=== PATIENT | female | born 1965 | race Caucasian/White ===

== ENCOUNTER → 2019-02-20 | Outpatient (CLI) | payer BC ==
--- NOTE | 2019-02-22 08:13 | MM ---
Reason for exam: screening (asymptomatic). Last mammogram was performed 3 years and 9 months ago. History: Patient is postmenopausal. Family history of breast cancer in paternal aunt at age 60. Physical Findings: A clinical breast exam by your physician is recommended on an annual basis and results should be correlated with mammographic findings. MG 3D Screening Mammo W/Cad Bilateral CC and MLO view(s) were taken. Prior study comparison: May 13, 2015, mammogram, performed at [facility]. May 03, 2015, mammogram, performed at [facility]. There are scattered fibroglandular densities. Finding: There are stable, fine, segmental calcifications in the upper inner quadrant, middle position of the right breast. No significant changes in finding since May 13, 2015 and May 03, 2015. ASSESSMENT: Benign, BI-RAD 2 RECOMMENDATION: Routine screening mammogram of both breasts in 1 year.
== END ==
LOC: RADMAMWWP 14:36
PROVIDERS: ATTEND Family Medicine
DX: Z12.31 Encounter for screening mammogram for malignant neoplasm of breast (principal)
CPT/HCPCS: 77063; 77067

== ENCOUNTER → 2020-09-09 | Outpatient (CLI) | payer BC ==
--- NOTE | 2020-09-11 09:19 | MM ---
Reason for exam: screening (asymptomatic). Last mammogram was performed 1 year and 7 months ago. History: Patient is postmenopausal. Family history of breast cancer in paternal aunt at age 60. Physical Findings: A clinical breast exam by your physician is recommended on an annual basis and results should be correlated with mammographic findings. MG 3D Screening Mammo W/Cad Bilateral CC and MLO view(s) were taken. Prior study comparison: February 20, 2019, bilateral MG 3d screening mammo w/cad. May 13, 2015, mammogram, performed at [facility]. There are scattered fibroglandular densities. New 1.6 x 0.9 x 0.8cm spiculated mass left upper outer quadrant. This is extremely suspicious. ASSESSMENT: Incomplete: need additional imaging evaluation, BI-RAD 0 RECOMMENDATION: Special view mammogram of the left breast. (3D) Ultrasound of the left breast. [facility] will attempt to contact patient to return for supplemental views and ultrasound.
== END | disposition home or self-care (01) ==
LOC: RADMAMWWP 11:02
PROVIDERS: ATTEND Family Medicine
DX: Z12.31 Encounter for screening mammogram for malignant neoplasm of breast (principal)
CPT/HCPCS: 77063; 77067

== ENCOUNTER → 2020-09-30 | Outpatient (CLI) | payer BC ==
--- NOTE | 2020-10-01 08:28 | MM ---
Reason for exam: additional evaluation requested from abnormal screening. Last mammogram was performed 1 month ago. History: Patient is postmenopausal. Family history of breast cancer in paternal aunt at age 60. Physical Findings: Nurse did not find any significant physical abnormalities on exam. MG 3D Work Up W/Cad LT CC and MLO view(s) were taken of the left breast. Prior study comparison: September 09, 2020, bilateral MG 3d screening mammo w/cad. February 20, 2019, bilateral MG 3d screening mammo w/cad. Finding: There is an intermediate concern, suspicious 10 mm high density, spiculated round mass located 7 cm from the nipple in the upper outer quadrant of the left breast. New finding since February 20, 2019. These results were verbally communicated with the patient and result sheet given to the patient on 09/30/20. ASSESSMENT: Incomplete: need additional imaging evaluation, BI-RAD 0 RECOMMENDATION: Ultrasound of the left breast.
--- NOTE | 2020-10-01 08:30 | USB ---
Reason for exam: additional evaluation requested from abnormal screening. History: Patient is postmenopausal. Family history of breast cancer in paternal aunt at age 60. US Breast Workup LT Left complete breast ultrasound includes all four quadrants, the retroareolar region and axilla. Finding demonstrates a 11 x 7 x 8mm irregular, spiculated, solid, hypoechoic, shadowing lesion at 2 o'clock, biopsy recommended and a chain of lymph nodes at the axilla tail with the largest measuring 10mm. These results were verbally communicated with the patient and result sheet given to the patient on 09/30/20. ASSESSMENT: Highly suggestive of malignancy, BI-RAD 5 RECOMMENDATION: Ultrasound core biopsy of the left breast. Called office with mammographic findings and has scheduled an appointment for the patient for 10/14/20 at 12:[address] Huddleston. Biopsy scheduled for 10/08/20 at 1:00. PRELIMINARY REPORT CALLED AND FAXED TO DR. HUDDLESTON ON 10/01/20.
== END | disposition home or self-care (01) ==
LOC: RADMAMWWP 13:26
PROVIDERS: ATTEND Family Medicine
DX: R92.8 Other abnormal and inconclusive findings on diagnostic imaging of breast (principal)
CPT/HCPCS: 77061; 77065

== ENCOUNTER → 2020-10-08 | Day surgery (SDC) | payer BC ==
[2020-10-08 13:29] VITALS: BP 153/89; PULSE 76; RESP 16; TEMP 98.3
--- NOTE | 2020-10-08 13:38 | USB ---
ULTRASOUND GUIDED CORE BIOPSY LEFT BREAST: CLINICAL HISTORY: 2:00 left breast lesion FINDINGS: The procedure was explained to the patient. The risks, complications, benefits and alternatives were discussed and any questions were answered. Informed consent was obtained. Patient was placed supine on the ultrasound table and prepped and draped in the usual sterile fashion. Utilizing a 14 gauge needle, four passes were made into the requested left lung nodule. Surgical clip was placed post procedure. Postprocedural mammogram demonstrated the clip to be in ideal position. Patient was stable throughout the procedure. Pathology is pending. All elements of maximal barrier technique were utilized. IMPRESSION: 1. Successful ultrasound guided core biopsy left breast. Pathology Results: Malignant LEFT BREAST, 2:00, ULTRASOUND GUIDED CORE BIOPSY: Invasive well differentiated ductal cell carcinoma (Grade 1). See Surgical Pathology Cancer Case Summary. Recommendation Surgical consult of the left breast. ANITRA
--- NOTE | 2020-10-08 13:47 | MM ---
Reason for exam: additional evaluation requested from abnormal screening. Last mammogram was performed less than 1 month ago. History: Patient is postmenopausal. Family history of breast cancer in paternal aunt at age 60. MG Diagnostic Mammo LT Wo CAD CC and LM view(s) were taken of the left breast. Prior study comparison: September 30, 2020, left breast MG 3d work up w/cad LT. September 09, 2020, bilateral MG 3d screening mammo w/cad. ASSESSMENT: Post procedure mammogram for marker placement RECOMMENDATION: Ultrasound of the left breast in 6 months. PENDING PATHOLOGY RESULTS.
== END ==
LOC: RADUSWWP 11:55
PROVIDERS: ATTEND Family Medicine
DX: C50.412 Malignant neoplasm of upper-outer quadrant of left female breast (principal); Z17.0 Estrogen receptor positive status [ER+]; Z78.0 Asymptomatic menopausal state; Z80.3 Family history of malignant neoplasm of breast
CPT/HCPCS: 88305; 88342; 88341; 77065; 19083; A4648; J2001

== ENCOUNTER 2021-05-16 07:36 | Day surgery (SDC) | payer BC ==
[2021-05-14 14:48] VITALS: BMI 33.2
[~2021-05-16 07:36] MED LIST: LACTATED RINGERS 1,000 ML IV SCH
[2021-05-16 07:54] VITALS: TEMP 97.8
[2021-05-16] MEDS ORDERED: PROPOFOL 10 MG/ML 20 ML VIAL IV ONE (08:20)
[2021-05-16 08:43] VITALS: RESP 18
[2021-05-16 08:57] VITALS: BP 106/71; PULSE 66
--- NOTE | 2021-05-16 08:57 | P.PCN ---
Date of Procedure: 05/16/21 Procedure(s) Performed: BRIEF HISTORY: Patient is a 55-year-old pleasant white female scheduled for an elective colonoscopy as a part of evaluation of prior history of colon polyps. PROCEDURE PERFORMED: Colonoscopy with biopsy. PREOPERATIVE DIAGNOSIS: History of colon polyps. IV sedation per Anesthesia. PROCEDURE: After informed consent was obtained, the patient, was brought into the endoscopy unit. IV sedation was administered by Anesthesia under continuous monitoring. Digital rectal examination was normal. Initially the Olympus CF-160 flexible video colonoscope was then inserted in the rectum, gradually advanced into the cecum without any difficulty. Careful examination was performed as the scope was gradually being withdrawn. Ileocecal valve and the appendiceal orifice were visualized and appeared normal. Prep was excellent. Mucosa of the cecum, ascending colon, transverse colon, descending colon, appeared normal. The sigmoid: There was a 3 mm polyp that was removed by cold biopsy. Rectum there was a 3 mm and 4 mm sessile polyp removed by cold biopsy. Retroflexion was performed in the rectum and no lesions were seen. The patient tolerated the procedure well. IMPRESSION: 3 mm sigmoid colon polyp status post removal by cold biopsy 3 mm and 4 mm proximal rectal polyp status post cold biopsy RECOMMENDATIONS: Findings of this examination were discussed with the patient as well as a family. She was advised to follow with the biopsy results. If the biopsy shows an adenoma she can have a repeat colonoscopy in 5 years.
== END 2021-05-16 09:30 | disposition home or self-care (01) ==
LOC: ORWHC2ENDO 07:36
PROVIDERS: ATTEND Internal Medicine Gastroenterology
DX: Z12.11 Encounter for screening for malignant neoplasm of colon (principal); K62.1 Rectal polyp; Z86.010 Personal history of colon polyps; F17.200 Nicotine dependence, unspecified, uncomplicated; Z79.899 Other long term (current) drug therapy; Z79.811 Long term (current) use of aromatase inhibitors; Z88.0 Allergy status to penicillin
CPT/HCPCS: 88305; 45380; J2704

== ENCOUNTER → 2021-06-10 | Outpatient (CLI) | payer BC ==
--- NOTE | 2021-06-10 19:04 | BD ---
EXAMINATION TYPE: Axial Bone Density DATE OF EXAM: 06/10/2021 COMPARISON: NONE CLINICAL HISTORY: Postmenopausal screening Height: 59.7 IN Weight: 174 LBS FRAX RISK QUESTIONS: Current Tobacco Use: YES RISK FACTORS HISTORY OF: Active: YES Postmenopausal woman: AGE 48 MEDICATIONS: Additional Medications: VIT D, ANASTRAZOLE, VIT E, B12, MULTI VIT Additional History: BREAST CANCER WITH RADIATION EXAM MEASUREMENTS: Bone mineral densitometry was performed using the [employer]. Bone mineral density as measured about the Lumbar spine is: ----- L1-L4(G/cm2): 1.091 T Score Values are as follows: ----- L2: -1.4 ----- L3: -0.9 ----- L4: 0.5 ----- L1-L4: -0.7 Bone mineral density BASELINE Bone mineral density about the R hip (g/cm2): 1.005 Bone mineral density about the L hip (g/cm2): 0.993 T Score values are as follows: -----R Neck: -0.2 -----L Neck: -0.3 -----R Total: 0.1 -----L Total: 0.4 Bone mineral density BASELINE IMPRESSION: Normal (Values between +1 and -1 indicate normal bone mass). Consider repeating this study in 5 year s or sooner if there is some new clinical indication. NOTE: T-SCORE=SD OF THE YOUNG ADULT MEAN.
== END | disposition home or self-care (01) ==
LOC: RADBDWWP 15:07
PROVIDERS: ATTEND Internal Medicine Hematology & Oncology
DX: Z13.820 Encounter for screening for osteoporosis (principal)
CPT/HCPCS: 77080

== ENCOUNTER 2021-06-30 20:50 | Emergency (ER) | payer BC ==
[2021-06-30 21:17] VITALS: BP 124/82; PULSE 78; RESP 18; TEMP 98
--- NOTE | 2021-06-30 21:35 | XR ---
EXAMINATION TYPE: XR shoulder complete RT DATE OF EXAM: 06/30/2021 COMPARISON: NONE HISTORY: Fall. Pain TECHNIQUE: 3 views FINDINGS: There is nondisplaced transverse fracture of the right humeral neck. There is no dislocatio n. Scapula is intact. AC joint is intact. IMPRESSION: Acute nondisplaced humeral neck fracture.
[2021-06-30] MEDS ORDERED: MORPHINE SULFATE 4 MG/ML SYRINGE IM STA (22:27)
[2021-06-30] MEDS ORDERED: ONDANSETRON ODT 4 MG TAB PO STA (22:27)
[2021-06-30] MEDS ORDERED: ACET/COD 300 MG/30 MG STARTER PACK 6 TAB BTL PO STA (23:01)
--- NOTE | 2021-06-30 23:02 | ED ---
General Adult HPI - General Chief complaint: Extremity Injury, Upper Stated complaint: fall R shoulder injury Time Seen by Provider: 06/30/21 21:55 Source: patient Mode of arrival: ambulatory Limitations: no limitations - History of Present Illness Initial comments: 55-year-old female presents to the emergency room for right shoulder pain. Patient was walking on her porch when she lost her footing and fell onto his lab of cement. Patient did not hit her head. However she does have right shoulder pain. States it is very painful to move her shoulder. Denies any pain elsewhere. Does not take blood thinners.Patient has no other complaints at this time including shortness of breath, chest pain, abdominal pain, nausea or vomiting, headache, or visual changes. - Related Data Home Medications Medication Instructions Recorded Confirmed Anastrozole [Arimidex] 1 mg PO DAILY 05/14/21 05/16/21 Melatonin 5 mg PO HS PRN 05/14/21 05/14/21 Multivitamin [Multivitamins Adult 1 each PO DAILY 05/14/21 05/14/21 Gummies] Varenicline [Chantix Continuing 1 mg PO BID 05/14/21 05/16/21 Pack] Vit D3 2,000 mcg PO DAILY 05/14/21 05/16/21 Vit E. 180 mg PO DAILY 05/14/21 05/16/21 diphenhydrAMINE [Benadryl] 50 mg PO HS PRN 05/14/21 05/16/21 Previous Rx's Medication Instructions Recorded HYDROcodone/APAP 5-325MG [Orr 1 tab PO Q6HR PRN #10 tab 06/30/21 5-325] Ondansetron [Zofran ODT] 4 mg PO Q8HR PRN #15 tab 06/30/21 Allergies Allergy/AdvReac Type Severity Reaction Status Date / Time Penicillins Allergy Rash/Hives Verified 06/30/21 21:15 Review of Systems ROS Statement: Those systems with pertinent positive or pertinent negative responses have been documented in the HPI. ROS Other: All systems not noted in ROS Statement are negative. Past Medical History Past Medical History: Cancer Additional Past Medical History / Comment(s): BREAST CANCER LT BREAST History of Any Multi-Drug Resistant Organisms: None Reported Past Surgical History: Cholecystectomy Additional Past Surgical History / Comment(s): COLONOSCOPY, CANCER REMOVED LT BREAST-LUMPECTOMY Past Anesthesia/Blood Transfusion Reactions: No Reported Reaction Past Psychological History: No Psychological Hx Reported Smoking Status: Current every day smoker Past Alcohol Use History: None Reported Past Drug Use History: None Reported - Past Family History Mother Family Medical History: No Reported History General Exam Limitations: no limitations General appearance: alert, in no apparent distress Head exam: Present: atraumatic, normocephalic, normal inspection Eye exam: Present: normal appearance, PERRL, EOMI. Absent: scleral icterus, conjunctival injection, periorbital swelling ENT exam: Present: normal exam, mucous membranes moist Neck exam: Present: normal inspection, full ROM. Absent: tenderness, meningismus, lymphadenopathy Respiratory exam: Present: normal lung sounds bilaterally. Absent: respiratory distress, wheezes, rales, rhonchi, stridor Cardiovascular Exam: Present: regular rate, normal rhythm, normal heart sounds. Absent: systolic murmur, diastolic murmur, rubs, gallop, clicks Extremities exam: Present: normal capillary refill (Capillary refill less than 2 seconds, radial pulse 2+ in the right upper extremity.), other (Skin is intact.). Absent: full ROM (Patient has minimal range of motion of the right shoulder secondary to pain. Able to flex and extend all fingers of the right hand and flex and extend the wrist.) Course Vital Signs 06/30/21 21:15 Temperature 98 F Pulse Rate 78 Respiratory 18 Rate Blood Pressure 124/82 O2 Sat by Pulse 96 Oximetry Medical Decision Making - Medical Decision Making X-ray shows an acute nondisplaced humeral neck fracture. Patient was placed in a sling. She was given IM morphine. This was delayed secondary to waiting room. Patient will need to follow-up with orthopedics. She'll be discharged with pain medication. She will return here for any worsening symptoms. Disposition Clinical Impression: Fracture of neck of humerus Disposition: HOME SELF-CARE Condition: Good Instructions (If sedation given, give patient instructions): Shoulder Pain (ED) Additional Instructions: Please take Motrin for pain. If pain is severe take Orr. Do not drive or operate machinery while taking this. Follow up with orthopedics by calling the office tomorrow morning. Return for any worsening symptoms. Prescriptions: HYDROcodone/APAP 5-325MG [Orr 5-325] 1 tab PO Q6HR PRN #10 tab PRN Reason: Pain Ondansetron [Zofran ODT] 4 mg PO Q8HR PRN #15 tab PRN Reason: Nausea Is patient prescribed a controlled substance at d/c from ED?: Yes When asked, does pt state using other controlled substances?: No If prescribed controlled substance>3 days was MAPS reviewed?: Prescribed <3 Days If opioid is for acute pain is fill amount 7 days or less?: Yes If Rx opioid, was Start Talking consent form obtained?: Yes Referrals: Wesley Huddleston MD [Primary Care Provider] - 1-2 days Randy So DO [Doctor of Osteopathic Medicine] - 1-2 days Time of Disposition: 23:00
== END 2021-06-30 23:10 | disposition home or self-care (01) ==
LOC: EC 20:50
DX: S42.211A Unspecified displaced fracture of surgical neck of right humerus, initial encounter for closed fracture (principal); F17.200 Nicotine dependence, unspecified, uncomplicated; Z88.0 Allergy status to penicillin; Z90.49 Acquired absence of other specified parts of digestive tract; Z85.3 Personal history of malignant neoplasm of breast; W01.10XA Fall on same level from slipping, tripping and stumbling with subsequent striking against unspecified object, initial encounter
CPT/HCPCS: 99283; 96372; 73030; J2270

== ENCOUNTER → 2021-09-03 | Outpatient (CLI) | payer BC ==
--- NOTE | 2021-09-03 11:49 | MM ---
Reason for exam: additional evaluation requested from prior study. Last mammogram was performed 11 months ago. History: Patient is postmenopausal and has history of breast cancer at age 54. Family history of breast cancer in paternal aunt at age 60. Malignant US breast needle core LT of the left breast, October 08, 2020. Taking antineoplastic for 1 year beginning at age 54. Physical Findings: Nurse did not find any significant physical abnormalities on exam. MG 3D Diag Mammo W/Cad [facility] Bilateral CC and MLO view(s) were taken. Prior study comparison: October 08, 2020, left breast MG diagnostic mammo LT wo CAD. September 09, 2020, bilateral MG 3d screening mammo w/cad. February 20, 2019, bilateral MG 3d screening mammo w/cad. There are scattered fibroglandular densities. Diffuse skin thickening left breast. Post surgical changes left breast. No significant new findings when compared with previous films. These results were verbally communicated with the patient and result sheet given to the patient on 09/03/21. ASSESSMENT: Benign, BI-RAD 2 RECOMMENDATION: Follow-up diagnostic mammogram of both breasts in 1 year.
== END | disposition home or self-care (01) ==
LOC: RADMAMWWP 10:36
PROVIDERS: ATTEND Radiology Radiation Oncology
DX: R92.2 Inconclusive mammogram (principal); Z85.3 Personal history of malignant neoplasm of breast; Z80.3 Family history of malignant neoplasm of breast
CPT/HCPCS: 77062; 77066

== ENCOUNTER → 2021-09-26 | Outpatient (CLI) | payer BC ==
[2021-09-26 17:10] LABS: Basophils # (A) 0.04 X 10*3/uL (0.00-0.10); Basophils % (A) 0.5 %; Eosinophils # (A) 0.31 X 10*3/uL (0.04-0.35); Eosinophils % (A) 4.3 %; HCT 41.8 % (37.2-46.3); HGB 13.7 g/dL (12.0-15.0); Lymphocytes % (A) 26.1 %; MCH 31.1 pg (27.0-32.0); MCHC 32.8 g/dL (32.0-37.0); MCV 94.8 fL (80.0-97.0); Mean Platelet Volume 12.5 fL (9.5-12.2); Monocytes # (A) 0.64 X 10*3/uL (0.20-1.00); Monocytes % (A) 8.8 %; Neutrophils # (A) 4.37 X 10*3/uL (1.80-7.70); Platelet Count 177 X 10*3/uL (140-440); RBC 4.41 X 10*6/uL (4.10-5.20); WBC 7.28 X 10*3/uL (4.50-10.00)
[2021-09-26 17:16] LABS: African American GFR (CKD) 125.3 (60.0-200.0); Albumin 4.4 g/dL (3.8-4.9); Anion Gap 12.9 mmol/L (4.00-12.00); BUN/Creat Ratio 19.98 Ratio (12.00-20.00); Blood Urea Nitrogen 9.8 mg/dL (9.0-27.0); Carbon Dioxide 25.1 mmol/L (21.6-31.8); Non-African American GFR(CKD) 108.1 (60.0-200.0); Potassium 4.8 mmol/L (3.5-5.5); Total Protein 6.8 g/dL (6.2-8.2)
[2021-09-26 20:06] LABS: Erythrocyte Sedimentation Rate 14 mm/Hr (0-30)
== END | disposition home or self-care (01) ==
LOC: LABWHC1 07:32
PROVIDERS: ATTEND Orthopaedic Surgery
DX: S42.201P Unspecified fracture of upper end of right humerus, subsequent encounter for fracture with malunion (principal); X58.XXXD Exposure to other specified factors, subsequent encounter
CPT/HCPCS: 36415; 80048; 82040; 82306; 84155; 85025; 85652; 86140

== ENCOUNTER → 2021-10-23 | Outpatient (CLI) | payer BC ==
--- NOTE | 2021-10-23 10:33 | CT ---
EXAMINATION TYPE: CT shoulder RT w con DATE OF EXAM: 10/23/2021 COMPARISON: X-ray 09/22/2021 HISTORY: Comminuted Right humeral fracture with delayed healing CT DLP: 358.5 mGycm Automated exposure control for dose reduction was used. CONTRAST: Performed with IV Contrast, patient injected with 100 mL of Isovue 300. FINDINGS: There is a nonunion fracture involving the neck of the humerus there does appear to be some callus fo rmation along the outer lateral margin of the fracture line. Hypertrophic change of the AC joint. Hypertrophic and degenerative change of the spine. IMPRESSION: PERSISTENT NONUNION RIGHT HUMERAL NECK FRACTURE
== END | disposition home or self-care (01) ==
LOC: RADCTMAIN 09:26
PROVIDERS: ATTEND Orthopaedic Surgery
DX: S42.211K Unspecified displaced fracture of surgical neck of right humerus, subsequent encounter for fracture with nonunion (principal)
CPT/HCPCS: 73201; Q9967

== ENCOUNTER → 2022-09-04 | Outpatient (CLI) | payer BC ==
--- NOTE | 2022-09-04 13:40 | MM ---
Reason for Exam: Additional evaluation requested from prior study. Last screening mammogram was performed 12 month(s) ago. Patient History: Menarche at age 12. First Full-Term at age 25. Postmenopausal. Breast cancer, age 54. Previous chest radiation therapy at age 54. 10/08/2020, Malignant Core Biopsy on the left side. Paternal aunt had breast cancer, age 60. Tissue Density: There are scattered fibroglandular densities. Findings: Analyzed By CAD. Postoperative lumpectomy changes left breast with persistent skin thickening. No evidence for recurrent or residual mass or suspicious cluster of microcalcifications. Overall Assessment: Benign, BI-RAD 2 Management: Screening Mammogram of both breasts in 1 year. A clinical breast exam by your physician is recommended on an annual basis and results should be correlated with mammographic findings. This exam should not preclude additional follow-up of suspicious palpable abnormalities. Results were given to the patient verbally at the time of exam. Electronically signed and approved by: Rajan Carrillo M.D. Radiologis
== END | disposition home or self-care (01) ==
LOC: RADMAMWWP 12:53
PROVIDERS: ATTEND Radiology Radiation Oncology
DX: C50.212 Malignant neoplasm of upper-inner quadrant of left female breast (principal); Z78.0 Asymptomatic menopausal state; Z80.3 Family history of malignant neoplasm of breast
CPT/HCPCS: 77062; 77066

== ENCOUNTER → 2023-03-09 | Outpatient (CLI) | payer BC ==
--- NOTE | 2023-03-09 15:34 | CTL ---
EXAMINATION TYPE: CT Low Dose Lung DATE OF EXAM ORDERED: 03/09/2023 HISTORY: 57-year-old female with personal history of nicotine dependence, 39 pack-year history, curre nt smoker. Lung cancer screening CT DLP: 106.[address] CTDI: 3.4 mGy Automated exposure control for dose reduction was used. SCREENING VISIT: Baseline COMPARISON: None TECHNIQUE: Low dose computed tomography scan was performed through the chest with coronal and sagitta l reconstructions. CT DIAGNOSTIC QUALITY: Satisfactory FINDINGS: Heart normal size without pericardial effusion. Ectatic ascending aorta 3.7 cm. Minimal atherosclerotic arch calcifications. Very direct takeoff of t he left vertebral artery directly from the aortic arch. No thoracic lymphadenopathy by CT size criteria. There appears to be some postsurgical change along the lateral left breast and diffuse left breast sk in thickening, compatible with prior posterior unchanged. Mild subpleural reticulations anterior left midlung likely related to previous post radiation therapy change. No consolidation or pleural effusion. No suspicious pulmonary nodule is seen. Tiny hiatal hernia. Visualized upper abdomen shows no gross abnormality. Bones: Anterior endplate spondylosis mid to lower thoracic spine. IMPRESSION: 1. Lung rads 1, negative. No suspicious pulmonary nodules. 2. Previous postsurgical and posttreatment changes left breast. CT LUNG RAD AND CT CHEST RECOMMENDATION: Lung-Rad 1 Negative: Continue annual screening with LDCT in 12 months. S Modifier (other clinically significant findings): None
== END | disposition home or self-care (01) ==
LOC: RADCTMAIN 12:57
PROVIDERS: ATTEND Internal Medicine Hematology & Oncology
DX: Z12.2 Encounter for screening for malignant neoplasm of respiratory organs (principal); F17.210 Nicotine dependence, cigarettes, uncomplicated
CPT/HCPCS: 71271

== ENCOUNTER → 2023-06-11 | Outpatient (CLI) | payer BC ==
--- NOTE | 2023-06-11 10:36 | BD ---
EXAMINATION TYPE: Axial Bone Density DATE OF EXAM: 06/11/2023 CLINICAL HISTORY: 57 years old Female. ICD-10 CODE: C50.412 CARCINOMA OF UPPER OUTTER QUADRANT OF BR EAST Height: 60 Weight: 166.7 FRAX RISK QUESTIONS: Alcohol (3 or more units per day): no Family History (Parent hip fracture): no Glucocorticoids (More than 3mos): no (Ex: prednisone, prednisolone, methylprednisolone, dexamethasone, and hydrocortisone). History of Fracture in Adulthood: yes Secondary Osteoporosis: 1. Type 1 Diabetes: no 2. Hyperthyroidism: no 3. Menopause before 45: no 4. Malnutrition: no 5. Chronic liver disease: no Rheumatoid Arthritis: no Current Tobacco Use: yes RISK FACTORS HISTORY OF: Surgery to Spine/Hip(right/left)/Wrist (right/left): no Family History of Osteoporosis: no Active: yes Diet low in dairy products/other sources of calcium: yes Postmenopausal woman: s Lost more than 2 inches in height since high school: no MEDICATIONS: Additional History: EXAM MEASUREMENTS: Bone mineral densitometry was performed using the [employer] System. Bone mineral density as measured about the Lumbar spine is: ----- L1-L4(G/cm2): 1.077 T Score Values are as follows: ----- L1: -1.9 ----- L2: -1.5 ----- L3: -0.9 ----- L4: 0.3 ----- L1-L4: -0.9 Z Score Values are as follows: ----- L1: -1.1 ----- L2: -0.7 ----- L3: -0.1 ----- L4: 1.1 ----- L1-L4: -0.1 Bone mineral density has: decreased -1.3 % since study of: 06.10.2021 Bone mineral density about the R hip (g/cm2): 0.988 Bone mineral density about the L hip (g/cm2): 1.057 T Score values are as follows: -----R Neck: -0.2 -----L Neck: -0.5 -----R Total: -0.1 -----L Total: 0.4 Z Score values are as follows: -----R Neck: 0.8 -----L Neck: 0.5 -----R Total: 0.6 -----L Total: 1.0 Bone mineral density has: decreased -1.1 % since study of: 8.3.2020 FRAX%s: The graph provided illustrates a 10.3% chance for a major osteoporotic fx and a 0.6% chance f or the hips probability for fx in 10 years time. IMPRESSION: Normal (Values between +1 and -1 indicate normal bone mass). Consider repeating this study in 5 year s or sooner if there is some new clinical indication. NOTE: T-SCORE=SD OF THE YOUNG ADULT MEAN.
== END | disposition home or self-care (01) ==
LOC: RADBDWWP 10:01
PROVIDERS: ATTEND Internal Medicine Hematology & Oncology
DX: C50.412 Malignant neoplasm of upper-outer quadrant of left female breast (principal); M85.89 Other specified disorders of bone density and structure, multiple sites; Z71.3 Dietary counseling and surveillance
CPT/HCPCS: 77080

== ENCOUNTER → 2023-09-06 | Outpatient (CLI) | payer BC ==
--- NOTE | 2023-09-06 11:07 | MM ---
Reason for Exam: Hx of breast cancer, conservation therapy. Last screening mammogram was performed 12 month(s) ago. Patient History: Menarche at age 12. First Full-Term at age 25. Postmenopausal. Breast cancer, left, age 54. Previous chest radiation therapy at age 54. 10/08/2020, Malignant Core Biopsy on the left side. Paternal aunt had breast cancer, age 60. Prior Study Comparison: 02/20/2019 Bilateral Screening Mammogram, [facility]. 09/09/2020 Bilateral Screening Mammogram, [facility]. 09/30/2020 Left Diagnostic Mammogram, [facility]. 09/30/2020 Left Diagnostic Ultrasound, [facility]. 10/08/2020 Left Diagnostic Mammogram, [facility]. 09/03/2021 Bilateral Diagnostic Mammogram, [facility]. 09/04/2022 Bilateral MG 3D diag mammo w/cad [facility], [facility]. Tissue Density: There are scattered fibroglandular densities. Findings: Analyzed By CAD. Postprocedural changes left breast surgical clips in place. Some scarring is noted. There is skin thickening of the left breast. Right breast is without suspicious mass, calcification or distortion. No new suspicious masses, calcifications or distortions. Overall Assessment: Benign, BI-RAD 2 Management: Screening Mammogram of both breasts in 1 year. Results were given to the patient verbally at the time of exam. Patient should continue monthly self-breast exams. A clinical breast exam by your physician is recommended on an annual basis. This exam should not preclude additional follow-up of suspicious palpable abnormalities. Note on Viky scores and lifetime risk: 1. A Viky score greater than 3% is considered moderate risk. If this is the case, consider specialist referral to assess eligibility for a risk reducing agent. 2. If overall lifetime risk for the development of breast cancer is 20% or higher, the patient may qualify for future screening with alternating mammogram and breast MRI. Electronically signed and approved by: Rikki Suarez DO
== END | disposition home or self-care (01) ==
LOC: RADMAMWWP 10:37
PROVIDERS: ATTEND Radiology Radiation Oncology
DX: C50.412 Malignant neoplasm of upper-outer quadrant of left female breast (principal); R92.323 Mammographic fibroglandular density, bilateral breasts; Z78.0 Asymptomatic menopausal state; Z85.3 Personal history of malignant neoplasm of breast; Z80.3 Family history of malignant neoplasm of breast
CPT/HCPCS: 77062; 77066

== ENCOUNTER → 2024-03-10 | Outpatient (CLI) | payer BC ==
--- NOTE | 2024-03-11 15:54 | CTL ---
EXAMINATION TYPE: CT Low Dose Lung DATE OF EXAM ORDERED: 03/10/2024 HISTORY: Nicotine dependence. Lung cancer screening CT DLP: [address] CTDI: 2.49 mGy Automated exposure control for dose reduction was used. SCREENING VISIT: Subsequent COMPARISON: 03/09/2023 TECHNIQUE: Low dose computed tomography scan was performed through the chest at 1 mm thick sections a nd reconstructed images in the coronal plane at [address] DIAGNOSTIC QUALITY: Limited, but interpretable FINDINGS: LUNG NODULES: None. LUNGS: COPD: Severity: None Fibrosis: Severity: None Lymph nodes: None Other findings: None RIGHT PLEURAL SPACE: Effusion: None Calcification: None Thickening: None Pneumothorax: None LEFT PLEURAL SPACE: Effusion: None Calcification: None Thickening: None Pneumothorax: None HEART: Other: Ascending thoracic aorta at the level the main pulmonary artery measures 3.5 cm. The main pul monary artery at the bifurcation measures 2.4 cm. Heart Size: Normal Coronary calcification: None Pericardial effusion: None OTHER FINDINGS: Upper abdomen: Normal Bony thorax: Normal Supraclavicular region: Normal IMPRESSION: No suspicious primary or metastatic changes. FOLLOW UP CT CHEST RECOMMENDATION: Low-dose CT chest [address] LUNG RAD: Lung-Rad 1 Negative
== END | disposition home or self-care (01) ==
LOC: RADCTMAIN 12:39
PROVIDERS: ATTEND Internal Medicine Hematology & Oncology
DX: Z12.2 Encounter for screening for malignant neoplasm of respiratory organs (principal); F17.210 Nicotine dependence, cigarettes, uncomplicated
CPT/HCPCS: 71271

== ENCOUNTER → 2024-09-20 | Outpatient (CLI) | payer BC ==
--- NOTE | 2024-09-20 14:49 | MM ---
Reason for Exam: Additional evaluation requested from prior study. Last mammogram was performed 1 year(s) and 1 month(s) ago. Patient History: Menarche at age 12. First Full-Term at age 25. Postmenopausal. Breast cancer, left, age 54. Previous chest radiation therapy at age 54. 10/08/2020, Malignant Core Biopsy on the left side. Paternal aunt had breast cancer, age 60. Prior Study Comparison: 09/03/2021 Bilateral Diagnostic Mammogram, [facility]. 09/04/2022 Bilateral MG 3D diag mammo w/cad [facility], [facility]. 09/06/2023 Bilateral MG 3D diag mammo w/cad [facility], [facility]. Tissue Density: There are scattered areas of fibroglandular density. Findings: Analyzed By CAD. Pattern is stable. Surgical clips from prior lumpectomy on the left. Some scattered calcification within the biopsied region. Skin thickening is present on the left. Few benign calcifications are within the right breast. No significant interval changes are evident. No suspicious groups of microcalcifications, spiculated or lobular masses, architectural distortion or other secondary signs of malignancy are mammographically apparent. Overall Assessment: Benign, BI-RAD 2 Management: Screening Mammogram of both breasts in 1 year. A negative mammogram report should not preclude additional follow up of suspicious palpable abnormalities. Patient should continue monthly self breast exam. A clinical breast exam by your physician is recommended on an annual basis and results should be correlated with mammographic findings. Note on Viky scores and lifetime risk: 1. A Viky score greater than 3% is considered moderate risk. If this is the case, consider specialist referral to assess eligibility for a risk reducing agent. 2. If overall lifetime risk for the development of breast cancer is 20% or higher, the patient may qualify for future screening with alternating mammogram and breast MRI. [facility], , 09/20/2024 2:47 PM. Electronically signed and approved by: Jose Enrique Pinzon D.O. Radiologis
== END | disposition home or self-care (01) ==
LOC: RADMAMWWP 14:03
PROVIDERS: ATTEND Radiology Radiation Oncology
DX: C50.412 Malignant neoplasm of upper-outer quadrant of left female breast (principal); F17.210 Nicotine dependence, cigarettes, uncomplicated; R92.323 Mammographic fibroglandular density, bilateral breasts; Z78.0 Asymptomatic menopausal state; Z92.3 Personal history of irradiation; Z80.3 Family history of malignant neoplasm of breast
CPT/HCPCS: 77062; 77066

== ENCOUNTER → 2025-03-13 | Outpatient (CLI) | payer BC ==
--- NOTE | 2025-03-13 14:17 | CTL ---
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 TECHNIQUE: Low dose computed tomography scan was performed through the chest at 1 mm thick sections a nd reconstructed images in multiple planes at 1 mm and [address] DLP: [address] CTDI: 2.4 mGy Automated exposure control for dose reduction was used. CT DIAGNOSTIC QUALITY: Satisfactory EXAMINATION TYPE: CT Low Dose Lung DATE OF EXAM ORDERED: 03/13/2025 CLINICAL INDICATION: Female, 59 years old with history of Z12.2 ENCNTR SCREEN FO F17.210 NICOTINE DEP ENDENCE, history of tobacco use, Lung cancer screening CT DLP: [address] CTDI: 2.4 mGy Automated exposure control for dose reduction was used. Comparison: None TECHNIQUE: Low dose computed tomography scan was performed through the chest at 1 mm thick sections a nd reconstructed images in multiple planes at 1 mm and [address] DIAGNOSTIC QUALITY: Satisfactory FINDINGS: There is no suspicious lung mass or nodule. There are a few scattered stable micronodules. The lungs are clear and there is no abnormal airspace consolidation or interstitial density. There is no mediastinal, hilar or axillary adenopathy. There is no pleural effusion, pleural thickening or pneumothorax. No focal osseous lesions are seen. Limited scans the upper abdomen reveals no gross abnormality IMPRESSION: 1. Lung rads Category 2 benign. Continue routine screening at yearly intervals. 2. No acute cardiopulmonary disease. [facility], , 03/13/2025 2:14 PM
== END | disposition home or self-care (01) ==
LOC: RADCTMAIN 13:39
PROVIDERS: ATTEND Internal Medicine Hematology & Oncology
DX: Z12.2 Encounter for screening for malignant neoplasm of respiratory organs (principal); F17.210 Nicotine dependence, cigarettes, uncomplicated
CPT/HCPCS: 71271